=== PATIENT | female | born 1995 | race Caucasian/White ===

== ENCOUNTER 2024-04-06 03:52 | Emergency (ER) | payer OTHER, SELFPAY ==
[2024-04-06 04:06] VITALS: BP 121/78; PULSE 86; RESP 16; TEMP 36.5; O2SAT 98; BMI 32.8
--- NOTE | 2024-04-06 04:39 | MHC.EDTECH ---
Pt belongings placed in [facility] shelf 2 by security. Pt had $71 in her bra, this was counted with Pt and with police liaison who also made note of amount.
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
[2024-04-06 06:12] VITALS: BP 119/66; PULSE 80; RESP 16; TEMP 36.7; O2SAT 99
[2024-04-06 06:41] LABS: MANUAL DIFF FLAG NO
[2024-04-06 06:47] LABS: Basophils Percent Auto 0.3 % (0-2); Eosinophils Percent Auto 0.1 % (0-4); Hematocrit 39.6 % (37.0-47.0); Hemoglobin 13.4 g/dl (12.0-16.0); Imm Gran Abs Auto 0.06 X10*3/uL (0.00-0.03); Imm Gran Pct Auto 0.6 % (0.0-0.4); Lymphocytes Absolute Auto 2.1 X10*3/uL (1.2-4.9); Lymphocytes Percent Auto 19.6 % (20-40); Mean Corpuscular HGB Conc 33.8 g/dl (31.0-35.0); Mean Corpuscular Hemoglobin 27.2 pg (27.0-33.0); Mean Corpuscular Volume 80.5 fL (80.0-98.0); Mean Platelet Volume 9.3 fL (9.4-12.3); Monocytes Absolute Auto 0.9 X10*3/uL (0.1-1.2); Monocytes Percent Auto 8.9 % (2-11); Neutrophils Absolute Auto 7.4 x10*3/uL (2.0-8.3); Neutrophils Percent Auto 70.5 % (45-73); Platelet Count 367 X10*3/uL (160-400); Red Blood Count 4.92 X10*6/uL (4.20-5.50); Red Cell Distribution Width 14.9 % (11.0-16.0); White Blood Count 10.5 X10*3/uL (4.8-10.8)
[2024-04-06 07:03] LABS: Anion Gap 16 (12-20); Blood Urea Nitrogen 10 mg/dL (9-16); Calcium 9.6 mg/dL (8.4-10.2); Carbon Dioxide 20 mmol/L (22-29); Chloride 109 mmol/L (96-108); Creatinine Clr Calc Pharmacy 122.7; Estimated Glomerular Filt Rate > 60; Ethanol 103 mg/dL; Glucose Random 92 mg/dL (60-115); Potassium 3.6 mmol/L (3.3-5.1); Sodium 141 mmol/L (135-145)
[2024-04-06 07:05] LABS: Appearance Urine Cloudy; Color Urine Yellow; Glucose Urine UA Negative (Negative); Leukocyte Esterase Urine Negative (Negative); Nitrite Urine Negative (Negative); PH 5.5 (5.0-9.0); Specific Gravity - Urine 1.025 (1.005-1.025); Urine Blood Negative (Negative); Urine Ketones Negative (Negative); Urine Protein Trace mg/dL (Neg-Trace)
[2024-04-06 07:08] LABS: HCG Quantitative < 2 mIU/mL
[2024-04-06 07:12] LABS: Amphetamine Screen Urine Not Detected (Not Detect); Barbiturates, Urine Not Detected (Not Detect); Benzodiazepines Screen Urine Not Detected (Not Detect); Buprenorphine Scr Not Detected (Not Detect); Cannabinoid Screen Urine Not Detected (Not Detect); Cocaine Screen Urine POSITIVE (Not Detect); Methadone Screen, Urine Not Detected (Not Detect); Opiate Screen Urine Not Detected (Not Detect); Oxycodone Screen Urine Not Detected (Not Detect); Phencyclidine Screen Urine Not Detected (Not Detect)
[2024-04-06 07:17] LABS: Fentanyl, urine Not Detected (Not Detect)
--- NOTE | 2024-04-06 07:23 | PC.NURSE ---
Assumed care of patient at 0655, patient brought over from main ED after being released from police custody. patient reports no complaints to this RN, attempted to make a few phone calls, inquiring about when she will be seen by CARE team. patient is aware of plan of care for CARE team evaluation at some point today
[2024-04-06] MEDS: LORazepam 1 MG TABLET PO (07:53)
[2024-04-06 11:47] VITALS: BP 102/74; PULSE 88; RESP 16; TEMP 36.3; O2SAT 99
--- NOTE | 2024-04-07 11:14 | MHC.CARE ---
RAD Team completed a [facility] PHP Referral. T/w faxed over the completed PHP referral form and the Care Team assessment to [facility] PHP program. Confirmation was received. Rad Team log was updated and Care Team was informed.
== END 2024-04-06 11:53 | disposition home or self-care (01) ==
PROVIDERS: Emergency Provider Emergency Medicine
DX: F33.1 Major depressive disorder, recurrent, moderate (principal); F41.9 Anxiety disorder, unspecified; R45.851 Suicidal ideations; Z51.81 Encounter for therapeutic drug level monitoring; Z79.899 Other long term (current) drug therapy
CPT/HCPCS: 36415; 80048; 80307; 81003; 84702; 85025; 99285

== ENCOUNTER 2024-04-27 22:51 | Emergency (ER) | payer OTHER, SELFPAY ==
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
--- NOTE | ~2024-04-27 | XR_ITS ---
EXAMINATION: XR ELBOW, LEFT CLINICAL INFORMATION: pain COMPARISON: None available. TECHNIQUE: AP, lateral, and oblique views of the left elbow. FINDINGS: The bones and soft tissues are normal. No fracture or joint effusion. Alignment is anatomic. Joint spaces are maintained. XR/XR elbow LT 2V IMPRESSION: No significant abnormality identified. Electronically signed by: Sohan Vera MD 04/28/2024 01:27 AM EST
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
[2024-04-27 22:56] VITALS: BP 132/78; PULSE 95; O2SAT 99
[2024-04-27 23:27] VITALS: BP 122/75; PULSE 88; RESP 24; O2SAT 100; BMI 33.5
[2024-04-28] MEDS: LORazepam 1 MG TABLET 2 MG PO (00:11)
[2024-04-28 00:12] LABS: Appearance Urine Cloudy; Color Urine Yellow; Glucose Urine UA Negative (Negative); Leukocyte Esterase Urine Negative (Negative); Nitrite Urine Negative (Negative); PH 5.5 (5.0-9.0); Specific Gravity - Urine 1.025 (1.005-1.025); UMIC TRIGGER UACC YES; Urine Blood Negative (Negative); Urine Ketones Trace mg/dL (Negative); Urine Protein 30 (1+) mg/dL (Neg-Trace)
[2024-04-28 00:15] LABS: Bacteria Urine Trace (None Seen); Hyaline Casts Urine 0-2 /LPF (0-2); RBC Urine 0-2 /HPF (0-2); UACC Culture Trigger YES
[2024-04-28 00:22] LABS: UPreg QC Valid YES; Urine Pregnancy NEGATIVE (NEGATIVE)
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
[2024-04-28 02:00] VITALS: RESP 20
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
[2024-04-28 04:33] VITALS: BP 102/59; PULSE 87; RESP 16; TEMP 36.6; O2SAT 100
[2024-04-28 04:34] VITALS: BP 102/59; PULSE 87; RESP 16; TEMP 36.6; O2SAT 100
== END 2024-04-28 04:34 | disposition home or self-care (01) ==
PROVIDERS: Emergency Provider Emergency Medicine; PCP Internal Medicine
DX: F10.920 Alcohol use, unspecified with intoxication, uncomplicated (principal); Y90.9 Presence of alcohol in blood, level not specified; S60.221A Contusion of right hand, initial encounter; S40.021A Contusion of right upper arm, initial encounter; Y04.2XXA Assault by strike against or bumped into by another person, initial encounter; M79.641 Pain in right hand; M25.521 Pain in right elbow; M54.50 Low back pain, unspecified; Y93.9 Activity, unspecified; Y92.9 Unspecified place or not applicable; Y99.9 Unspecified external cause status
CPT/HCPCS: 70450; 72100; 72125; 73070; 73120; 81001; 81025; 87086; 99284

== ENCOUNTER 2024-05-07 07:10 | Emergency (ER) | payer OTHER, SELFPAY ==
--- NOTE | 2024-05-07 | ECG_ITS ---
Test Reason : PALPITATION Blood Pressure : / mmHG Vent. Rate : 072 BPM Atrial Rate : 072 BPM P-R Int : 126 ms QRS Dur : 070 ms QT Int : 426 ms P-R-T Axes : 019 032 042 degrees QTc Int : 466 ms Normal sinus rhythm Normal ECG No previous ECGs available Referred By: Generic ED Physician Electronically Signed By:EARL DIOR MD
[2024-05-07 07:19] VITALS: BP 112/76; PULSE 62; O2SAT 98
[2024-05-07 07:20] VITALS: BP 114/55; PULSE 80; RESP 18; TEMP 36.6; O2SAT 98; BMI 26.6
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
--- NOTE | 2024-05-07 07:47 | PC.NURSE ---
Patient reports palpitations x 1 week- ekg order placed
--- NOTE | 2024-05-07 08:05 | PC.NURSE ---
security placed belongings in closet, shelf 3
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
--- NOTE | 2024-05-07 08:27 | PC.NURSE ---
Per provider okay to give patient her phone to call her father. Patient calm and cooperative, ambulating to bathroom with stready gait
--- NOTE | 2024-05-07 09:02 | PC.NURSE ---
Patient reporting that her father is here to pick her up, provider aware and discharged patient
[2024-05-07 09:08] VITALS: BP 114/55; PULSE 80; RESP 18; TEMP 36.6; O2SAT 98
== END 2024-05-07 09:09 | disposition home or self-care (01) ==
PROVIDERS: Emergency Provider Emergency Medicine; PCP Internal Medicine
DX: F10.920 Alcohol use, unspecified with intoxication, uncomplicated (principal); Y90.9 Presence of alcohol in blood, level not specified; Z72.89 Other problems related to lifestyle; Z63.0 Problems in relationship with spouse or partner
CPT/HCPCS: 93005; 99284

== ENCOUNTER → 2024-05-07 07:47 | Outpatient (BNV) | payer OTHER, SELFPAY | PROVIDERS: Emergency Provider Emergency Medicine; PCP Internal Medicine; Visit Provider Internal Medicine Cardiovascular Disease | DX: R00.2 Palpitations (principal) | CPT/HCPCS: 93010 ==

== ENCOUNTER 2025-01-29 21:54 | Emergency (ER) | payer OTHER, SELFPAY ==
--- OUTSIDE RECORDS SUMMARY | 2025-01-29 22:06 | XMS_ITS | Clinical Summary ---
Author Organization [facility] Address [address] [place] [id number] Phone Care Team Providers Care Reversal Print Inspector Name Role Phone Luiza Beth NP Primary Care Provider [phone] Allergies Active Allergy Reactions Criticality Noted Date Comments Azithromycin 04/07/2020 Medications PROAIR HFA 108 (90 Base) MCG/ACT inhalerIndication s:Mild intermittent asthma without complication INHALE 2 PUFFS BY MOUTH EVERY 4 HOURS NEEDED FOR COUGH AND WHEEZE (1 INHALER FOR HOME/ AND SCHOOL) 1 Units 9 Active naproxen 500 MG tabletIndications :Other headache syndrome Take 1 tablet (500 mg total) by mouth 2 (two) times a day as needed for mild pain or moderate pain. 30 tablet 0 Active chlorhexidine 0.12 % solutionIndicatio ns:Mouth sores Rinse for 30 seconds and spit twice a day. Do not swallow. 118 mL 1 Active Additional Information Patient not taking.Reported on 12/14/2020 cetirizine (ZyrTEC Allergy) 10 MG tabletIndications :Seasonal allergic rhinitis, unspecified trigger Take 1 tablet (10 mg total) by mouth nightly as needed for allergies. 30 tablet 1 1 Active atomoxetine (Strattera) 40 MG capsuleIndication s:ADHD (attention deficit hyperactivity disorder), inattentive type Take 1 capsule (40 mg total) by mouth every morning. 30 capsule 1 Active FLUoxetine (PROzac) 40 MG capsuleIndication s:Anxiety and depression Take 1 capsule (40 mg total) by mouth daily. 30 capsule 1 Active medroxyPROGESTERo ne 150 MG/ML injectionIndicati ons:Encounter for surveillance of injectable contraceptive Inject 1 mL (150 mg total) into the muscle every 3 (three) months. 1 mL 1 Active lisdexamfetamine (Vyvanse) 70 MG capsuleIndication s:Attention deficit hyperactivity disorder (ADHD), combined type Take 1 capsule (70 mg total) by mouth every morning. 30 capsule 1 Active Active Problems Problem Noted Date Diagnosed Date Acute cystitis with hematuria 10/08/2020 Assessment & Plan (10/08/2020 4:03 PM EDT): Concern for UTI with UA. Will send urine for culture. With history of UTIs will treat for UTI with antibiotic course. Given azopyridium script to help with urinary discomfort short term. Lesion of frontal lobe of brain 09/28/2020 Assessment & Plan (09/28/2020 11:20 PM EDT): Lesion noted on MRI in the right anterolateral aspect of the fronal lobe. Patient questioned whether her current symptoms might be related to this lesion. Discussed that this was unlikely. She does not have persistent headaches, worse with lying down, persistent vomiting or apparent frontal lobe dysfunction. She does have an appointment with neurosurgery. Seasonal allergic rhinitis 09/28/2020 Assessment & Plan (09/28/2020 11:16 PM EDT): Congestion likely from seasonal allergies. Will treat with cetirizine. This may be playing into light headedness. Acute diffuse otitis externa of both ears 2020 Assessment & Plan (09/28/2020 11:17 PM EDT): Exam consistent with otitis externa. Will treat with antibiotic topically. Influenza vaccine refused 08/16/2020 Intrinsic eczema 01/16/2020 Dysthymic disorder 09/17/2017 Overview (09/10/2019): Depression with anxiety (300.4) Onset: 09/17/2017 Added by: Madeleine Mcclain Assessment & Plan (08/22/2020 6:18 PM EDT): Stable on Prozac 40 mg. Contraceptive surveillance 08/02/2017 Overview (09/10/2019): Follow-up visit for Depo Provera injection (V25.49) Onset: 08/02/2017 Added by: Humaira Gabriel Extrinsic asthma 06/21/2017 Overview (09/10/2019): Asthma (493.00) Onset: 06/21/2017 Added by: Joaquina Buckner Resolved Problems Problem Noted Date Diagnosed Date Resolved Date Vaginal discharge 09/28/2020 12/14/2020 Assessment & Plan (09/28/2020 11:15 PM EDT): Vaginal discharge now for 2 weeks. Prior history of candidal vaginal infection. Will send vaginal swab to check for wendy vs bacterial infection. Mouth sores 03/03/2020 04/11/2020 Assessment & Plan (03/03/2020 5:51 PM EDT): Herpes testing was negative at last appointment. Concern for overgrowth of bacteria in mouth causing mucosal irritation, particularly with tooth decay ongoing. Recommended to see dentist for tooth concern and then will treat with antiseptic mouthwash to help sores to heal more easily. Rash 01/16/2020 04/11/2020 Assessment & Plan (01/16/2020 5:43 PM EDT): Scattered erythematous rash consistent with a viral related reactive skin rash. No concern for cellulitis. Discussed that with headache resolving and no further neck discomfort that I would have no current concern for meningitis. Discussed use of cetirizine and topical hydrocortisone to help with the itchiness of the rash. With time the rash should resolve on its own. The one spot of ecchymosis on the right hand raises concern for possible coronavirus. Ordering COVID testing to check on this. Acute non-recurrent frontal sinusitis 09/10/2019 04/11/2020 Pain in joint, pelvic region and thigh 06/21/2017 04/11/2020 Overview (09/10/2019): Hip pain (719.45) Onset: 06/21/2017 Added by: Marie Hagan Obesity 06/01/2016 08/22/2020 Overview (09/10/2019): Overweight (278.00) Onset: 06/01/2016 Added by: Joaquina Buckner Overweight (278.02) Onset: 06/21/2017 Added by: Joaquina Buckner Immunizations Immunization Administration Dates Next Due DTP 12/05/2000, 8,04/06/1997, 997,1996 DTaP 5 01/01/2001, 8,04/06/1997, 997,1996 HPV, Quadrivalent 12/24/2008,08/31/2008,07/03/19 09 Hep B, ped/adol 04/06/1997, 7,1996, 997,1996 Hib (PRP-T) 12/08/1997, 8,04/06/1997, 997,01/26/1997,01/05/1997,1996,05/1996 IPV 01/01/2001, 1,04/06/1997, 997,01/05/1997,1996 MMR 01/01/2001, 1,1997, 998 Meningococcal Conj (Menactra) MCV4P 04/13/2014,0 07/03/2008 OPV 01/26/1997,1996 PPD Test 12/04/2017 Tdap 08/16/2020,07/03/2008 Varicella 07/03/2008,01/01/2001,12/05/2000 Family History Medical History Relation Name Comments Kidney disease Father Khadar Anxiety disorder Mother Toña Depression Mother Toña Hypertension Mother Toña Anxiety disorder Sister Mine Relation Name Status Comments Father Khadar Alive Mother Toña Alive Sister Mine Alive Social History Tobacco Use Types Packs/Day Years Used Date Smoking Tobacco: Never Comments:Never Smoker Hunger/Food Answer Date Recorded In the last 12 months, did y ou or your family ever eat less than you felt you should because there wasn't enough money for food? No 06/21/2020 Stable Housing Answer Date Recorded Are you worried that in the next 2 months you may not have stable housing? No 06/21/2020 Transportation Concerns Answer Date Rec orded In the last 12 months, have you or your family ever had to go without healthcare because you didn't have a way to get there? No 06/21/2020 Hazards in Home Answer Date Recorded Think about the place you li ve. Do you have problems with any of the following? Pests (mice or roaches), mold, no/not working smoke detectors, water leaks, no window guards. No 2020 Financing Utilities Answer Date Recorde d In the last 12 months, has t he electric, gas, oil, or water company threatened to shut off your services in your home? No 06/21/2020 Safety at Home Answer Date Recorded Are you or your family worried about feeling saf e in your home? No 06/21/2020 Outside Support Answer Date Recorded Do you feel that you need mo re support from other people or programs to help you care for yourself or your family? No 06/21/2020 Understanding Health Concerns Answer Da te Recorded Do you need help understandi ng your or your child's healthcare needs (diagnosis, medications, plan, etc.)? No 06/21/2020 Financing Health Concerns Answer Date R ecorded In the last 12 months, was t here a time when your child needed to see a doctor or get medications or supplies but could not because of cost? No 06/21/2020 Missing School or Work Answer Date Adelfo rded Did you or your child miss s chool or work because of a health problem that could have been avoided? No 06/21/2020 Comments No Sex and Gender Information Value Date Recorded Sex Assigned at Not on file Legal Sex Female 6:24 PM EDT Gender Identity Not on file Sexual Orientation Not on file Last Filed Vital Signs Vital Sign Reading Time Taken Comments Blood Pressure 120/78 12/14/2020 12:34 PM EDT Pulse 92 12/14/2020 12:34 PM EDT Temperature 37.1 C (98.8 F) 02/25/2021 3:22 PM EDT Respiratory Rate - - Oxygen Saturation - - Inhaled Oxygen Concentration - - Weight 97.5 kg (215 lb) 12/14/2020 12:34 PM EDT Height 166.4 cm (5' 5.5 ) 12/14/2020 12:34 PM ED T Body Mass Index 35.23 12/14/2020 12:34 PM EDT Plan of Treatment Health Maintenance Due Date Last Done Comments Influenza Vaccines (#1) 2024 COVID-19 Vaccine ( season) 2025 DTaP,Tdap,and Td Vaccines (8 - Td or Tdap) 08/16/2030 08/16/2020, 07/03/2008, 01/01/2001, Additional history exists Hepatitis B Vaccines Completed 04/06/1997, 04/06/1997, 1996, Additional history exists HIB Vaccines Completed 12/08/1997, 05/1997, 04/06/1997, Additional history exists IPV Vaccines Completed 01/01/2001, 05/2000, 04/06/1997, Additional history exists MMR Vaccines Completed 01/01/2001, 05/2000, 1997, Additional history exists Varicella Vaccines Completed 07/03/2008, 0 01/01/2001, 12/05/2000 HPV Vaccines Completed 12/24/2008, 08/06, 07/03/2008 Meningococcal Vaccine Completed 04/13/2014, 009 Hepatitis A Vaccines Aged Out No long er eligible based on patient's age to complete this topic Men B Vaccine Aged Out No longer elig ible based on patient's age to complete this topic Pneumococcal Vaccine Aged Out No long er eligible based on patient's age to complete this topic Procedures * Due to [place] state law, this organization might not be sharing sensitive test results. Procedure Name Priority Date/Time Associated Diagnosis Comments SURESWAB (ADV) VAGINITIS PLUS, TMA Routine 09/28/2020 2:35 PM EDT Vaginal discharge from Last 3 Months or Most Recently Relevant to Health Maintenance Results * Due to [place] state law, this organization might not be sharing sensitive test results. * Vaginosis/Vaginitis Plus (09/28/2020 2:35 PM EDT) BACTERIAL VAGINOSIS TEST NEGATIVE (NEG) [facility] Comment: No bacterial vaginosis targets by PCR detected in this patient's sample. Note: This assay uses real time food service associate-mediated amplification (TMA) for detection and quantification of ribosomal RNA from bacteria associated with bacterial vaginosis (BV), including Lactobacillus (L. gasseri, L. crispatus, and L. jensenii), Gardnerella vaginalis, and Atopobium vaginae. Wendy Species NEGATIVE (NEG) [facility] Comment: No wendy species group (C. albicans, C. tropicalis, C. parapsilosis, C. dubliniensis) targets by PCR detected in this patient's sample. Wendy Glabrata, NOMAN NEGATIVE (NEG) [facility] Comment:No Wendy glabrata targets by PCR detected in this patient's sample. SureSwab, T.vaginalis RNA NEGATIVE (NEG) [facility] Comment: No Trichomonas vaginalis targets by PCR detected in this patient's sample. Note: This assay uses real time food service associate-mediated amplification (TMA) for detection and quantification of ribosomal RNA from organisms associated with Wendy species group (C. albicans, C. tropicalis, C. parapsilosis, C. dubliniensis), Wendy glabrata, and Trichomonas vaginalis. Chlamydia Trachomatis, Amplified NEGATIVE (NEG) [facility] Comment: No Chlamydia Trachomatis RNA detected in this patient's sample (REFERENCE RANGE/NORMAL VALUE: NOT DETECTED) Note: This test uses food service associate- mediated amplification method to detect rRNA from C. Trachomatis N.GONORRHOEAE AMP PROBE NEGATIVE (NEG) [facility] Comment: No Neisseria Gonorrhoeae RNA detected in this patient's sample (REFERENCE RANGE/NORMAL VALUE: NOT DETECTED) NOTE: This test uses food service associate-mediated amplification method to detect rRNA from N.Gonorrhoeae. A negative result does not preclude infection. In the case of a negative urine result, testing of an endocervical(female) or urethral (male) specimen is recommended if there is high clinical suspicion of infection. Due to very high sensitivity of Nucleic Acid Amplification Test, false positive results may occur. Therefore, specimen handling is extremely important. In patients in whom the disease is unlikely, additional sample for testing should be considered after an initial positive result. The performance characteristics of this test have not been evaluated in children. The Aptima Combo2 assay is not intended for the evaluation of suspected sexual abuse or for other medico-legal indications. The ordering provider should assess if the patient had consensual sex without risk of sexual abuse. Consult the [facility] if needed. Contact phone number . Therapeutic failure or success cannot be determined with the Aptima Combo2 assay since nucleic acid may persist following appropriate antimicrobial therapy. The Centers for Disease Control and Prevention (CDC) recommends confirmatory retesting using culture or a different nucleic acid amplification test when positive results occur, if indicated. Testing performed or reported by [facility], a Service of [facility], [address], [place] [address] Yuval Adam MD, Painter Barrel Swab (Vagina) 09/28/2020 2:3 5 PM EDT 09/28/2020 10:09 PM EDT us Alverto Carrasquillo MD LAB MICROBIOLOGY - GENERAL O RDERABLES Final Result [facility] from Last 3 Months or Most Recently Relevant to Health Maintenance Care Teams Reversal Print Inspector Relationship Specialty Start Date End Date Luiza Beth NP [address] [address] PCP - General Pediatrics 09/20/20
--- OUTSIDE RECORDS SUMMARY | 2025-01-29 22:06 | XMS_ITS | Clinical Summary ---
Author Organization [facility] Address [address] [facility] [address] [place] [address] Phone Care Team Providers Care Counseling Psychologist Name Role Phone Joaquina Buckner MD Primary Care Provider + Allergies Active Allergy Reactions Criticality Noted Date Comments Azithromycin Hives 05/22/2021 Medications fluticasone propionate (FLOVENT DISKUS INHL) Active albuterol (PROAIR HFA) 90 mcg/actuation inhaler 09/06/2017 Active Active Problems Problem Noted Date Diagnosed Date COVID-19 05/22/2021 Assessment & Plan (05/22/2021 2:42 PM EST): -Patient presented with fever of 102 at home, nausea, vomiting, poor appetite, headache, diffuse chest pain, sore throat after multiple episodes of vomiting. She first developed symptoms 2 days prior to admission on 05/20. -Labs show lymphopenia, mildly elevated inflammatory CRP of 8 and D-dimer 528 -CXR shows bilateral patchy infiltrates -Follow up legionella and strep pneumo serology -Started on Decadron 6mg daily 05/22 -Started on Remdesivir 05/22, pros and cons discussed with the patient and she has consented to starting the medication -Monitor LFTs -Started prn albuterol, prn robitussin, prn antipyretics -Titrate supplemental O2, her oxygen saturation is in the high 90s on 1 L, closely monitor oxygen requirement -Conservative IVF strategy to avoid ARDS, encourage po fluids Anxiety and depression 05/22/2021 Assessment & Plan (05/22/2021 1:48 PM EST): -Currently not on any medications Mild asthma 05/22/2021 Assessment & Plan (05/22/2021 1:49 PM EST): -No wheezing, continue as needed albuterol Family History Medical History Relation Comments Diabetes Mother Hypertension Mother Relation Status Comments Mother Social History Tobacco Use Types Packs/Day Years Used Date Smoking Tobacco: Never Smokeless Tobacco: Never Alcohol Use Standard Drinks/Week Comments Yes 0 (1 standard drink = 0.6 oz pure alcohol) socially, mixed drins several times per week Education Answer Date Recorded Are you interested in more education? Not on shalonda e 2022 Are you concerned about learning? Not on file 2022 No 2022 No 2022 Digital Access Answer Date Recorded No 09/29/2022 No 09/29/2022 Reliable internet access at home? Not on file 09/29/2022 Device with a working camera? Not on file Comments Unknown Sex and Gender Information Value Date Recorded Sex Assigned at Female 07/29/2018 5:20 PM EDT Legal Sex Female 8:50 PM EDT Gender Identity Female 07/29/2018 5:20 PM EDT Sexual Orientation Straight 07/29/2018 5: 20 PM EDT Last Filed Vital Signs Vital Sign Reading Time Taken Comments Blood Pressure 101/70 05/23/2021 3:15 PM EST Pulse 75 05/23/2021 3:15 PM EST Temperature 37.4 C (99.3 F) 05/23/2021 11:24 AM EST Respiratory Rate 16 05/23/2021 3:15 PM EST Oxygen Saturation 100% 05/23/2021 3:15 PM EST Inhaled Oxygen Concentration - - Weight 100.2 kg (221 lb) 05/22/2021 8:56 AM EST Height 165.1 cm (5' 5 ) 05/22/2021 8:56 AM EST Body Mass Index 36.78 05/22/2021 8:56 AM EST Plan of Treatment Health Maintenance Due Date Last Done Comments DEPRESSION SCREENING 2008 HEPATITIS C SCREENING 2014 HIV ONE-TIME SCREENING (18-65 YEARS) 2014 PNEUMOCOCCAL VACCINES (0-49 years) (1 of 2 - PCV) 09/02/2015 PAP SMEAR 2017 SMOKING STATUS SCREENING (Once After 26 Yrs) 2022 INFLUENZA VACCINE (#1) 2024 COVID-19 VACCINE ( - season) 2025 Adult Td,Tdap Booster 08/16/2030 08/16/2020, 009 HIB VACCINES Completed 12/08/1997, 05/1997, 04/06/1997, Additional history exists MENINGOCOCCAL VACCINES (ACWY) Completed 04/13/2014, 07/03/2008 HEPATITIS A VACCINES Aged Out No long er eligible based on patient's age to complete this topic MENINGOCOCCAL VACCINES (B) Aged Out N o longer eligible based on patient's age to complete this topic Medical Devices Not on file Insurance Member Subscriber Plan / Payer (Ef fective 2015-Present) Name:Tracey Lopez Relation to Subscriber:Self Name:TRACEY LOPEZ Payer ID:Not on file Type:Medicaid Address: [address] [facility] Member Subscriber Plan / Payer (Ef fective 2015-Present) Name:Tracey Lopez Relation to Subscriber:Self Name:TRACEY LOPEZ Payer ID:Not on file Type:Medicaid Address: [address] [facility] Member Subscriber Plan / Payer (Ef fective 2015-Present) Name:Tracey Lopez Relation to Subscriber:Self Name:JOHNTRACEY Payer ID:Not on file Type:Medicaid Address: [address] [facility] Member Subscriber Plan / Payer (Ef fective 2015-Present) Name:Tracey Lopez Relation to Subscriber:Self Name:JOHNTRACEY Payer ID:Not on file Type:Medicaid Address: [address] [facility] Member Subscriber Plan / Payer (Ef fective 2015-Present) Name:Tracey Lopez Relation to Subscriber:Self Name:TRACEY LOPEZ Payer ID:Not on file Type:Medicaid Address: [place] [id number] [facility] Member Subscriber Plan / Payer (Ef fective 2015-Present) Name:Tracey Lopez Relation to Subscriber:Self Name:CYDNEY LOPEZY Payer ID:Not on file Type:Medicaid Address: [address] [facility] Advance Directives For more information, please contact: [phone] (9AM - 5PM [place], Sunday-Sunday) * Full Code (Latest Code Status on File) Date Activated Date Inactivated Comments 05/22/2021 2:00 PM Question Answer Comments Code Status Confirmed With: Patient Care Teams Counseling Psychologist Relationship Specialty Start Date End Date Joaquina Buckner MD [address] [place] [address] SHAKIRA GONZALEZ [id number] PCP - General 05/10/17 Additional Source Comments The information contained in this document represents components of the legal health record. It is not the complete legal health record.[facility]
--- OUTSIDE RECORDS SUMMARY | 2025-01-29 22:06 | XMS_ITS | Encounter Summary ---
Author Organization [facility] Address [address] [place] [address] Phone Care Team Providers Care Manager Business Information Name Role Phone Luiza Beth NP Primary Care Provider [phone] Encounter Details Date Type Department Care Team (Late st Contact Info) Description 01/27/2011 Conversion Encounter [facility] [address] [address] Social History Tobacco Use Types Packs/Day Years Used Date Smoking Tobacco: Never Assessed Comments Unknown Sex and Gender Information Value Date Recorded Sex Assigned at Not on file Legal Sex Female 6:24 PM EDT Gender Identity Not on file Sexual Orientation Not on file documented as of this encounter Plan of Treatment Not on file documented as of this encounter Visit Diagnoses Not on filedocumented in this encounter Care Teams Manager Business Information Relationship Specialty Start Date End Date Luiza Beth NP [address] [place] [address] PCP - General Pediatrics 09/20/20 documented as of this encounter
--- OUTSIDE RECORDS SUMMARY | 2025-01-29 22:06 | XMS_ITS | Encounter Summary ---
Author Organization [facility] Address [address] [facility] [address] [place] [address] Phone Care Team Providers Care Transit [employer] Police Officer Name Role Phone Joaquina Buckner MD Primary Care Provider + Encounter Details Date Type Department Care Team (Late st Contact Info) Description 06/29/2017 Ancillary Orders [facility], -[address] [address] Javi Shen, DAYO [address] [place] [address] [email or web address] Chronic left hip pain Social History Tobacco Use Types Packs/Day Years Used Date Smoking Tobacco: Never Assessed Comments Unknown Sex and Gender Information Value Date Recorded Sex Assigned at Female 07/29/2018 5:20 PM EDT Legal Sex Female 8:50 PM EDT Gender Identity Female 07/29/2018 5:20 PM EDT Sexual Orientation Straight 07/29/2018 5: 20 PM EDT documented as of this encounter Plan of Treatment Not on file documented as of this encounter Results * XR HIPS 1 VW EA BILAT PLUS PELVIS (06/29/2017 9:35 AM EST) Anatomical Region Laterality Modality Hip, Pelvis Radiographic Deedee ging 06/29/2017 10:0 4 AM EST Impressions 06/29/2017 10:06 AM EST No findings to account for the patient's pain. POS - [id number] Narrative 06/29/2017 10:06 AM EST HISTORY: As above. COMPARISON: Left hip x-ray 02/12/2013. BILATERAL HIP/PELVIC RADIOGRAPH FINDINGS: 5 views obtained. No fracture or malalignment. Joint spaces are maintained. No destructive bone lesions or AVN. Soft tissues are normal. Procedure Note Minesh Hanna MD - 06/29/2017 HISTORY: As above. COMPARISON: Left hip x-ray 02/12/2013. BILATERAL HIP/PELVIC RADIOGRAPH FINDINGS: 5 views obtained. No fracture or malalignment. Joint spaces aremaintained. No destructive bone lesions or AVN. Soft tissues arenormal. IMPRESSION: No findings to account for the patient's pain. POS - [id number] Javi Shen SKIP LOAD DRIVER IMG XR PELVIS Final Res ult documented in this encounter Visit Diagnoses Diagnosis Chronic left hip pain Chronic left hip pain documented in this encounter Additional Health Concerns Infection Onset Date Last Indicated Resolved Time CoV-Risk 05/22/2021 05/22/2021 05/22/2021 9:56 AM EST COVID-19 05/22/2021 05/22/2021 06/12/2021 2:42 AM EST documented as of this encounter Care Teams Transit [employer] Police Officer Relationship Specialty Start Date End Date Joaquina Buckner MD [address] [place] [address] SHAKIRA GONZALEZ [address] PCP - General 05/10/17 documented as of this encounter Additional Source Comments The information contained in this document represents components of the legal health record. It is not the complete legal health record.[facility]
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
[2025-01-29] MEDS: diazePAM 10 MG/2 ML CARTRIDGE IM (22:27)
[2025-01-29 22:29] VITALS: BP 113/75; PULSE 112; RESP 24; TEMP 36.7; O2SAT 94; BMI 30.8
[2025-01-29 22:35] VITALS: BP 126/78; PULSE 103; RESP 20; O2SAT 96
[2025-01-29 23:05] VITALS: BP 108/61; PULSE 96; RESP 18; O2SAT 97
[2025-01-29 23:05] LABS: MANUAL DIFF FLAG NO
[2025-01-29 23:06] LABS: Hematocrit 41.4 % (37.0-47.0); Hemoglobin 14.5 g/dl (12.0-16.0); Imm Gran Abs Auto 0.04 X10*3/uL (0.00-0.03); Imm Gran Pct Auto 0.4 % (0.0-0.4); Lymphocytes Absolute Auto 0.9 X10*3/uL (1.2-4.9); Mean Corpuscular HGB Conc 35.0 g/dl (31.0-35.0); Mean Corpuscular Hemoglobin 28.2 pg (27.0-33.0); Mean Corpuscular Volume 80.4 fL (80.0-98.0); NRBC Abs Auto 0.000 X10*3/uL (0.0-0.012); NRBC Pct Auto 0.0 /100WBC (0.0-0.2); Platelet Count 374 X10*3/uL (160-400); Red Blood Count 5.15 X10*6/uL (4.20-5.50); White Blood Count 9.3 X10*3/uL (4.8-10.8)
[2025-01-29 23:25] LABS: Alanine Aminotransferase 19 U/L (0-31); Albumin Level 4.7 g/dL (3.5-5.0); Alkaline Phosphatase 132 U/L (39-117); Anion Gap 16 (12-20); Aspartate Amino Transferase 31 U/L (5-31); Blood Urea Nitrogen 7 mg/dL (9-16); Calcium 9.2 mg/dL (8.4-10.2); Carbon Dioxide 25 mmol/L (22-29); Chloride 111 mmol/L (96-108); Creatinine Clr Calc Pharmacy 108.0; Estimated Glomerular Filt Rate > 60; Potassium 3.8 mmol/L (3.3-5.1); Sodium 148 mmol/L (135-145); Total Protein 8.5 g/dL (6.5-8.0)
--- NOTE | 2025-01-29 23:38 | PC.NURSE ---
this rn assumed care of pt @ [id number]. pt sleeping at this time after medication admin. at this time unable to perform [place] scale. awaiting lab results and care team assessment
[2025-01-29 23:58] VITALS: BP 104/54; PULSE 77; RESP 16; O2SAT 94
[2025-01-30 03:18] VITALS: BP 100/58; PULSE 84; RESP 16; O2SAT 94
[2025-01-30 05:52] VITALS: BP 97/49; PULSE 78; RESP 18; O2SAT 100
--- NOTE | 2025-01-30 05:52 | PC.NURSE ---
pt states at this time no SI/ HI reports does not want resources from medical staff. per dr mitchell pt medically cleared for pod. charge out clerk made aware
--- NOTE | 2025-01-30 06:15 | PC.NURSE ---
Patient transferred from ED 4 to 1. Patient is alert and oriented x4, calm, cooperative, able to make her needs known. Patient denies SI/HI/AH/VH at this time. Patient oriented to 1 room, currently resting in bed, no s/s of apparent distress noted.
[2025-01-30 06:30] LABS: Cannabinoid Screen Urine Not Detected (Not Detect)
--- NOTE | 2025-01-30 07:02 | PC.NURSE ---
Assumed care of patient at 0645, patient appears to be sleeping, respirations even and unlabored, no apparent distress is noted at this time. Continue plan of care for CARE team estuardo
[2025-01-30 08:46] VITALS: BP 115/63; PULSE 103; RESP 20; TEMP 36.9; O2SAT 95
[2025-01-30 10:57] VITALS: BP 115/63; PULSE 103; RESP 20; TEMP 36.9; O2SAT 95
[2025-01-30 11:00] LABS: Appearance Urine Clear; Glucose Urine UA Negative (Negative); PH 5.5 (5.0-9.0); Specific Gravity - Urine 1.020 (1.005-1.025); UMIC TRIGGER UA YES
== END 2025-01-30 10:59 | disposition home or self-care (01) ==
PROVIDERS: Emergency Medicine; Emergency Provider Emergency Medicine Emergency Medical Services
DX: F10.129 Alcohol abuse with intoxication, unspecified (principal); Y90.8 Blood alcohol level of 240 mg/100 ml or more; F14.90 Cocaine use, unspecified, uncomplicated; R45.851 Suicidal ideations; Z51.81 Encounter for therapeutic drug level monitoring; Z79.899 Other long term (current) drug therapy
CPT/HCPCS: 36415; 80048; 80076; 80307; 81001; 84702; 85025; 96372; 99285; J1200; J1630; J3360; S9485